=== PATIENT | male | born 1955 | race Caucasian/White ===

== ENCOUNTER 2023-03-07 11:32 | Inpatient (IN) | payer OTHER ==
[~2023-03-07] VITALS: Ht 182.9 cm; Wt 88.2 kg
[2023-03-07 12:15] LABS: BASOPHILS ABSOLUTE AUTO 0.08 K/mm3 (0.00-0.23); BASOPHILS PERCENT AUTO 1 % (0-2); EOSINOPHILS ABSOLUTE AUTO 0.51 K/mm3 (0.00-0.68); EOSINOPHILS PERCENT AUTO 6 % (0-6); Hematocrit 40.2 % (37.0-53.0); Hemoglobin 13.7 g/dL (13.5-17.5); IMMATURE GRAN ABSOLUTE AUTO 0.06 K/mm3 (0.00-0.10); IMMATURE GRAN PERCENT AUTO 1 % (0-1); LYMPHOCYTES ABSOLUTE AUTO 0.96 K/mm3 (0.84-5.20); LYMPHOCYTES PERCENT AUTO 11 % (21-46); MONOCYTES ABSOLUTE AUTO 0.66 K/mm3 (0.16-1.47); MONOCYTES PERCENT AUTO 8 % (4-13); Mean Corpuscular HGB Conc 34.1 g/dL (31.5-36.5); Mean Corpuscular Volume 94 fL (80-100); Mean Platelet Volume 8.6 fL (9.1-12.4); NEUTROPHILS ABSOLUTE AUTO 6.52 K/mm3 (1.96-9.15); NEUTROPHILS PERCENT AUTO 74 % (41-73); Platelet Count 403 K/mm3 (150-400); RDW Coefficient Variation 13.7 % (11.7-14.2); RDW Standard Deviation 47.6 fL (35.1-46.3); Red Blood Cell Count 4.28 M/mm3 (4.30-5.90); White Blood Cell Count 8.79 K/mm3 (4.00-11.30)
[2023-03-07] MEDS ORDERED: TIOT18 INH (12:24)
[2023-03-07] MEDS ORDERED: DABI150C (12:24)
[2023-03-07 12:25] LABS: Albumin, Blood 3.7 g/dL (3.4-5.0); Bilirubin, Total 0.7 mg/dL (0.1-1.0); Bun/Creatinine Ratio 21.6 (12.0-20.0); Creatinine, Blood 0.65 mg/dL (0.60-1.20); Globulin, Blood 3.6 g/dL (2.2-4.0); Potassium, Blood 3.8 mmol/L (3.5-5.5); Total Protein, Blood 7.3 g/dL (6.4-8.2)
[2023-03-07] MEDS ORDERED: GUAI600T33 PO (12:25)
[2023-03-07] MEDS ORDERED: ALBU90OI INH (12:25)
[2023-03-07] MEDS ORDERED: Ventolin/Prove6.7 GM INH (12:25)
[2023-03-07] MEDS ORDERED: FORMOTEROL20 MCG/2 M IH (12:26)
[2023-03-07 17:41] VITALS: BP 149/91
[2023-03-07 17:58] LABS: Adenovirus Not Detected (NOT DETECT); Bordetella pertussis Not Detected (NOT DETECT); Chlamydophila pneumoniae Not Detected (NOT DETECT); Coronavirus 229E Not Detected (NOT DETECT); Coronavirus HKU1 Not Detected (NOT DETECT); Coronavirus NL63 Not Detected (NOT DETECT); Coronavirus OC43 Not Detected (NOT DETECT); Human Metapneumovirus Not Detected (NOT DETECT); Human Rhinovirus/Enterovirus Not Detected (NOT DETECT); Influenza A/2009-H1 Not Detected (NOT DETECT); Influenza A/H1 Not Detected (NOT DETECT); Influenza A/H3 Not Detected (NOT DETECT); Influenza B Not Detected (NOT DETECT); Mycoplasma pneumoniae Not Detected (NOT DETECT); Parainfluenza Virus 1 Not Detected (NOT DETECT); Parainfluenza Virus 2 Not Detected (NOT DETECT); Parainfluenza Virus 3 Not Detected (NOT DETECT); Parainfluenza Virus 4 Not Detected (NOT DETECT); Respiratory Syncytial Virus Not Detected (NOT DETECT); SARS-Cov-2 (COVID-19), BioFire Not Detected (NOT DETECT)
[2023-03-07] MEDS ORDERED: Ventolin5 MG/1 ML INH (18:00)
[2023-03-07 20:14] VITALS: BP 138/78
--- NOTE | 2023-03-07 23:32 | NUR ---
START OF SHIFT THIS STUDENT NURSE ASSUMED CARE OF PT AT 1900 UNDER THE OBSERVATION OF NURSE JONES BLEVINS. ADMISSION IN PROGRESS. PT TOOK HOME MEDICATIONS PRIOR TO SHIFT CHAGNE. PT EDUCATED ON HOSPITAL PROTOCOL REGARDING MEDICATION ADMINISTRATION. PT A&O X4. PT HR AND BP ELEVATED, CURRENTLY RECEIVING BREATHING TREATMENTS/STERIODS. WILL MONITOR FOR S/S. REMAINING VITAL SIGNS WNL. EXP WHEEZING NOTED IN ALL LUNG FELIX, DIMINISHED SOUNDS IN LEFT LOWER LOBE. PRODUCTIVE COUGH PRESENT. ON TELE. NO COMPLAINTS OF PAIN. PT LET IN A POSITION OF COMFORT AND SAFETY WITH BED IN LOW POSITION, BREAKS ON, BED RAILS UP, NONSKID SOCKS ON, FLOOR CLEAR OF DEBRIS, AND CALL LIGHT WITHIN REACH. WILL CONTINUE TO MONITOR.
[2023-03-08 03:53] VITALS: BP 100/61
--- NOTE | 2023-03-08 04:30 | NUR ---
SHIFT SUMMARY THIS STUDENT NURSE ADDRESSED THE PT'S ACUTE RESP FAILURE BY ADMINISTERING PRESCRIBED SOLUMEDROL, PERFORMING DETAILED RESP ASSESSMENT, PT TEACHING REGARDING THE USE OF A FLUTTER VALVE. ENCOURAGED INCREASED NUTRITION WITH SNACKS TOLERATED. PROVIDED PT TEACHING ON PROTEIN SHAKES AT HOME TO IMPROVE NUTRITION INTAKE WHEN NOT HUNGRY DUE TO SOB. INTAKE ASSESSMENT PERFORMED BY JONES BLEVINS. VSS, HR TRENDING DOWN FROM PREVIOUS VALUES, SHOWING IMPROVEMENT. PT A&O X4. PT SLEPT PART OF SHIFT, PAIN MANAGED THROUGHOUT SHIFT. PT REMAINS IN A STATE OF COMFORT AND SAFETY. WILL CONTINUE TO MONITOR THROUGHOUT MY SHIFT.
--- NOTE | 2023-03-08 05:56 | NUR ---
CTA/SEPARATOR INSERTER I HAVE READ THIS SEPARATOR INSERTER'S DOCUMENTATION AND I AGREE. SHIFT SUMMARY LOCATED UNDER SEPARATOR INSERTER NOTE
[2023-03-08 07:14] VITALS: BP 136/97
--- NOTE | 2023-03-08 09:00 | NUR ---
PT PLEASANT TALKATIVE. A/O X4, FOCUSED ON BOATING ACCIDENT. HANDS SHAKEY, STATES LIKELY FROM STEROIDS. DENIES PAIN AT THIS TIME. CONCERNED ABOUT SPUTUM. STATES MOSTLY CLEAR AND THIN AT THIS TIME. ALSO MINIMAL. BUT COUGHS UP SOME. H/R REG, NO MURMUR NOTED, NO TELE NO EDEMA NOTED. LUNGS EXPIRATORY WHEEZES T/O. ON 2L O2. RESP EASY, UNLABORED. BT X4 LAST BM YEST PER PT. VOIDS INDEPENDANT TO BATHROOM. BED IN LOW POSITION, CALL LITE IN REACH, CALLS APPROP
[2023-03-08 15:02] VITALS: BP 139/82
[2023-03-08 19:16] VITALS: BP 130/84
--- NOTE | 2023-03-08 19:51 | NUR ---
PT QUITE PLEASANT TODAY. CONTINUES TO HAVE EXPIRATORY WHEEZE T//O. REMAINS ON 2L O2 TO KEEP O2 SATS STABLE. AMBULATES ROOM INDEPENDANTLY, TOOK SHOWER TODAY. INTERESTED IN FINDING DRS IN [place], CLOSER TO HOME IF CAN FOR FOLLOWUP. NO OTHER CONCERNS NOTED. BED IN LOW POSITION, CALL LITE IN REACH, CALLS APPROP
[2023-03-09 03:53] VITALS: BP 115/78
--- NOTE | 2023-03-09 04:15 | NUR ---
SHIFT SUMMARY ADMITTED FOR RESPIRATORY FAILURE. FULL CODE. ANTIB RX ARE SCHEDULED. AWAITING SPUTUM CX. WHEEZING THROUGHOUT LUNG FELIX. TREMORS NOTED. 2 LPM O2 VIA NC, RA @ BASELINE. A&O X4. ADMISSIONS AT [facility] SINCE DECEMBER, RECORDS IN HARDCOPY CHART. INDEPENDENT - BRP. ON HOME RX PRADAXA.
[2023-03-09 05:57] LABS: Hematocrit 34.3 % (37.0-53.0); Hemoglobin 11.4 g/dL (13.5-17.5); Mean Corpuscular HGB 31.6 pg (26.0-34.0); Mean Corpuscular HGB Conc 33.2 g/dL (31.5-36.5); Mean Corpuscular Volume 95 fL (80-100); Mean Platelet Volume 9.1 fL (9.1-12.4); Platelet Count 362 K/mm3 (150-400); RDW Coefficient Variation 14.2 % (11.7-14.2); RDW Standard Deviation 49.7 fL (35.1-46.3); Red Blood Cell Count 3.61 M/mm3 (4.30-5.90); White Blood Cell Count 16.32 K/mm3 (4.00-11.30)
[2023-03-09 06:19] LABS: Bun/Creatinine Ratio 39.1 (12.0-20.0); Calcium, Blood 8.6 mg/dL (8.5-10.1); Creatinine, Blood 0.79 mg/dL (0.60-1.20); Potassium, Blood 4.3 mmol/L (3.5-5.5)
[2023-03-09 07:12] VITALS: BP 140/98
[2023-03-09 15:02] VITALS: BP 125/79
--- NOTE | 2023-03-09 18:25 | NUR ---
PT PLEASANT TODAY. DID COLLECT SPUTUM SAMPLE TODAY. PENDING RESULTS. STATES LUNGS FEEL LIKE NOT IMPROVING MUCH. MAYBE NOT AT ALL TODAY. CONTINUES TO BE ON 2L O2. GETTING BREATHING TREATMENTS. O2 AFTER BREATHING TX LAST TIME AT 92%. PT CONTINUES TO BE WHEEZY T/O MOSTLY ON EXPIRATION. SLIGHTLY DIM BASES. NO NEW CHANGES NOTED. BED IN LOW POSITION, CALL LITE IN REACH, CALLS APPROP
[2023-03-09 19:41] VITALS: BP 133/85
--- NOTE | 2023-03-10 04:09 | NUR ---
PSYCHIATRY RESIDENT SUMMARY NO ACUTE EVENTS THIS SHIFT. A&OX4. PATIENT EFFECTIVELY COMMUNICATES NEEDS. VSS. RR EVEN AND SLIGHTLY LABORED WHILE AT REST ON 2L/MIN O2. EXERTIONAL DYSPENA NOTED. PATIENT DOES APPEAR TO TOLERATE AMBULATING TO THE RESTROOM. PATIENT DEMONSTRATES A HACKING COUGH WITH TENACIOUS PRODUCTION. SPUTUM CULTURE RESULTS PENDING. PATIENT WAS RESTLESS THROUGHOUT THE NIGHT BUT STATED THIS WAS SECONDARY TO SLEEPING DURING THE DAY. NO REPORTS OF PAIN THIS SHIFT. BED LOW AND LOCKED. CALL LIGHT WITHIN REACH. THIS RN WILL CONTINUE TO MONITOR.
[2023-03-10 04:21] VITALS: BP 123/95
[2023-03-10 07:57] VITALS: BP 131/94
--- NOTE | 2023-03-10 09:00 | NUR ---
PT PLEASNT COOP A/O X3 DENIES PAIN TODAY. STATES FEELING SOME BETTER TODAY, H/R REG, NO MURMUR NOTED NO TELE. NO EDEMA NOTED. LUNGS EXP WHEEZES T/O. ALSO LIGHT COARSE IN BASES. CONTINUES ON 2L O2. RESP EASY, UNLABORED. AGAIN , STATES SOME BETTER TODAY. BT X4 LAST BM YEST PER PT. VOIDS INDEPENDANT TO BATHROOM. NO NEW CONCERNS. BED IN LOW POSITION, CALL LITE IN REACH, CALLS APPROP
[2023-03-10 16:36] VITALS: BP 151/94
--- NOTE | 2023-03-10 18:22 | NUR ---
PT PLEASANT TODAY. STATES FEELS SOME BETTER TODAY. HOPING TO GET ON PATH TO GET FULLY BETTER AND GET HOME. LUNGS STILL EXP WHEEZES. CONTINUES TO BE ON 2L O2. NO NEW CONCERNS NOTED. BED IN LOW POSITIOIN, CALL LITE IN REACH, CALLS APPROP
[2023-03-10 19:51] VITALS: BP 132/96
--- NOTE | 2023-03-11 04:13 | NUR ---
PICKER TENDER HELPER SUMMARY NO ACUTE EVENTS THIS SHIFT. A&OX4. PATIENT EFFECTIVELY COMMUNICATES NEEDS. VSS. RR SLIGHTLY LABORED AT REST ON 2L/MIN O2. EXERTIONAL DYSPENEA NOTED. PATIENT DEMONSTRATES INTERMITTENT COUGH WITH TENACIOUS PRODUCTION. A SPUTUM SAMPLE IS NEEDED AT THIS TIME; PATIENT IS AWARE OF THIS AND A SPUTUM CUP IS AT BEDSIDE. NO PAIN REPORTED THIS SHIFT. BED LOW AND LOCKED. CALL LIGHT WITHIN REACH. THIS RN WILL CONTINUE TO MONITOR.
[2023-03-11 04:23] VITALS: BP 143/99
[2023-03-11 08:48] VITALS: BP 143/92
[2023-03-11 15:38] VITALS: BP 126/87
--- NOTE | 2023-03-11 17:51 | NUR ---
SUMMARY- NO ACUTE EVENTS THIS SHIFT. SPUTUM SAMPLE WAS COLLECTED. PT STILL ON 2L. INDEPENDENT IN ROOM. CALLS APPROPRIATELY.
[2023-03-11 20:00] VITALS: BP 129/92
--- NOTE | 2023-03-12 04:17 | NUR ---
SHIFT SUMMARY NO ACUTE CHANGES TO PT CONDITION. PT DID DECIDE TO TAKE OFF HIS O2 LAST NIGHT. PT STATED THAT HIS OXYGEN LEVEL WAS 92-93% AND THAT WAS BETTER THAN WHEN HE CAME IN. HE ALSO STS HE DOES NOT WANT TO BECOME DEPENDENT ON O2 WHEN HE GOES HOME. PT NOT COMPLAINING OF ANY BREATHING DIFFICULTIES AT THIS TIME.
[2023-03-12 07:47] VITALS: BP 136/95
[2023-03-12 15:46] VITALS: BP 133/83
--- NOTE | 2023-03-12 18:34 | NUR ---
SUMMARY- NO ACUTE EVENTS THIS SHIFT. PT WALKED THE HALLS MULTIPLE TIMES THIS SHIFT. W/O OXYGEN. O2 SATURATION STAYED ABOVE 91% AND HR STAYED BELOW 102.
[2023-03-12 19:29] VITALS: BP 133/76
[2023-03-13 05:24] VITALS: BP 143/97
--- NOTE | 2023-03-13 06:32 | NUR ---
SHIFT SUMMARY: A&O X 4, ABLE TO MAKE NEEDS KNOWN, USES CALL LIGHT. NO COMPLAINTS OF PAIN OR DISCOMFORT. HE DOES PLAN ON DISCHARGING TODAY AND VERBALIZES THAT HE NEEDS A PCP AND WOULD LIKE A CASE MANAGMENT MEETING TODAY. HE PLANS TO RETURN TO HIS PREVIOUS HOME BUT DOES NOT PLAN ON STAYING INSIDE THE CABIN WHICH IS WHERE HE RESIDED PREVIOUSLY. HE HAS HIS CALL LIGHT WITHIN REACH.
[2023-03-13 07:41] VITALS: BP 146/96
[2023-03-13] MEDS ORDERED: VISBIOME 112.51 EACH PO (12:05)
[2023-03-13] MEDS ORDERED: DULERA 200 MCG-13 GM INH (12:05)
[2023-03-13] MEDS ORDERED: PRED20 PO (12:05)
[2023-03-13] MEDS ORDERED: Q-Tussin100 MG/5 M PO (12:06)
[2023-03-13] MEDS ORDERED: LEVOFLOXACIN750 MG PO (12:07)
[2023-03-13] MEDS ORDERED: IPRAT-ALBUT 0.5-3 ML INH (12:07)
[2023-03-13] MEDS ORDERED: PANT20 PO (12:08)
--- NOTE | 2023-03-13 13:52 | NUR ---
LATE ENTRY PT DISCHARGED HOME. RIDE PROVIDED BY MS. DISCHARGE INSTRUCTIONS DISCUSSED WITH PT. NO QUESTIONS AT THIS TIME. R/A AND INDEPENDENT.
== END 2023-03-13 12:21 | disposition home or self-care (01) | DRG 193 ==
LOC: ER 11:32 → MEDS 15:11
PROVIDERS: Student in an Organized Health Care Education/Training Program; ADMIT Internal Medicine
DX: J18.9 Pneumonia, unspecified organism (principal); J96.01 Acute respiratory failure with hypoxia; J44.1 Chronic obstructive pulmonary disease with (acute) exacerbation; D68.59 Other primary thrombophilia; J44.0 Chronic obstructive pulmonary disease with (acute) lower respiratory infection; Z20.822 Contact with and (suspected) exposure to COVID-19; Z99.81 Dependence on supplemental oxygen; Z79.899 Other long term (current) drug therapy; Z87.891 Personal history of nicotine dependence
CPT/HCPCS: 0202U; 36415; 71045; 80048; 80053; 83735; 83880; 84145; 84484; 85025; 85027; 87070; 87205; 93005; 93010; 94640; 94644; 94664; 94760; 96365; 96375; 96376; 99285-25; A9270; J0456; J2930; J7030; J7050; J7512

== ENCOUNTER 2023-06-24 16:19 | Inpatient (IN) | payer OTHER ==
[~2023-06-24] VITALS: Ht 182.9 cm; Wt 90.0 kg
[~2023-06-24 16:19] MED LIST: ALBU90OI INH; DABI150C; DULERA 200 MCG-13 GM INH; FORMOTEROL20 MCG/2 M IH; GUAI600T33 PO; IPRAT-ALBUT 0.5-3 ML INH; LEVOFLOXACIN750 MG PO; PANT20 PO; PRED20 PO; Q-Tussin100 MG/5 M PO; TIOT18 INH; VISBIOME 112.51 EACH PO; Ventolin/Prove6.7 GM INH; Ventolin5 MG/1 ML INH
[2023-06-24 17:45] LABS: BASOPHILS PERCENT AUTO 1 % (0-2); EOSINOPHILS ABSOLUTE AUTO 0.19 K/mm3 (0.00-0.68); EOSINOPHILS PERCENT AUTO 2 % (0-6); Hematocrit 44.4 % (37.0-53.0); Hemoglobin 15.4 g/dL (13.5-17.5); IMMATURE GRAN ABSOLUTE AUTO 0.07 K/mm3 (0.00-0.10); IMMATURE GRAN PERCENT AUTO 1 % (0-1); LYMPHOCYTES ABSOLUTE AUTO 1.52 K/mm3 (0.84-5.20); LYMPHOCYTES PERCENT AUTO 16 % (21-46); MONOCYTES ABSOLUTE AUTO 0.75 K/mm3 (0.16-1.47); MONOCYTES PERCENT AUTO 8 % (4-13); Mean Corpuscular HGB 31.6 pg (26.0-34.0); Mean Corpuscular HGB Conc 34.7 g/dL (31.5-36.5); Mean Corpuscular Volume 91 fL (80-100); NEUTROPHILS PERCENT AUTO 73 % (41-73); RDW Coefficient Variation 12.9 % (11.7-14.2); RDW Standard Deviation 42.7 fL (35.1-46.3); Red Blood Cell Count 4.87 M/mm3 (4.30-5.90); White Blood Cell Count 9.53 K/mm3 (4.00-11.30)
[2023-06-24 18:41] LABS: Mean Platelet Volume 9.8 fL (9.1-12.4); Platelet Count 270 K/mm3 (150-400)
[2023-06-24 18:52] LABS: Base Excess Venous 1.2 mmol/L; PCO2 Venous 43.6 mmHg (38-42); pH Blood Venous 7.39 (7.34-7.37)
[2023-06-24 19:03] LABS: Albumin, Blood 4.2 g/dL (3.4-5.0); Albumin/Globulin Ratio 1.1 (0.8-1.8); Bun/Creatinine Ratio 16.8 (12.0-20.0); Calcium, Blood 9.8 mg/dL (8.5-10.1); Creatinine, Blood 0.77 mg/dL (0.60-1.20); Globulin, Blood 3.7 g/dL (2.2-4.0); Magnesium, Blood 2.4 mg/dL (1.6-2.4); Phosphorus, Blood 2.5 mg/dL (2.5-4.9); Total Protein, Blood 7.9 g/dL (6.4-8.2)
[2023-06-24 19:30] LABS: Influenza A, PCR NEGATIVE (NEGATIVE); Influenza B, PCR NEGATIVE (NEGATIVE); Resp Syncytial Virus, PCR NEGATIVE (NEGATIVE); SARS-Cov-2 (COVID-19) PCR, MMC NEGATIVE (NEGATIVE)
[2023-06-24 22:54] VITALS: BP 183/100
[2023-06-24] MEDS ORDERED: PANT20 PO (23:24)
[2023-06-25 04:54] VITALS: BP 187/103
--- NOTE | 2023-06-25 05:06 | NUR ---
PT ADMITTED LAST NIGHT FROM ED FOR COPD EXACERBATION. 2L NC IN ED BUT PATIENT WAS EXPERIENCING SOB ON 2L, INCREASED TO 4L NC TO MAINTAIN SATS AT 92+. LUNGS ARE COARSE AND WHEEZY. FREQUENT PRODUCTIVE COUGH WITH THICK WHITE OUTPUT. PT SHOWERED IMMEDIATELY ON ADMITTING. NO SKIN ISSUES. AOX4, SBA DUE TO MILD WEAKNESS IN GAIT, PATIENT DENIES RECENT HX OF FALLING. COOPERATIVE AND PLEASANT WITH CARES. FIRE SAFETY REVIEWED.
[2023-06-25 07:18] VITALS: BP 150/100
--- NOTE | 2023-06-25 14:03 | NUR ---
CALLED CALLED AT 14:02 TO REPORT PT'S ELEVATED BP. TO ROUND ON PT THIS SHIFT TO ADDRESS.
--- NOTE | 2023-06-25 17:34 | NUR ---
SHIFT SUMMARY PT A&OX4, COOPERATIVE, AMB INDEPENDENTLY, VOIDING, AND TOLERATING PO. BP REMAINED ELEVATED T/O SHIFT, REPORTED TO , ROUNDED AND PUT IN ORDER FOR COZAAR. PT MEDICATED PER EMAR. PT ASYMPTOMATIC AND DENIES PAIN. PT REPORTS ONGOING SOB, PRODUCTIVE COUGH, AND IS ON 4L O2. PT CALLS APPROPRIATELY AND CALL LIGHT IS WITHIN REACH. WILL CONTINUE TO MONITOR FOR CHANGES UNTIL END OF SHIFT AND REPORT TO THE ONCOMING RN.
--- NOTE | 2023-06-25 17:55 | NUR ---
PT STATED THAT HE BELIEVES THAT HE LOST CONCIOUSNESS AFTER A COPD COUGHING FIT, BUT IS UNSURE. PT IS CURRENTLY A&OX4. I INSTRUCTED THE PT TO REPORT SUBSEQUENT EPISODES WHEN THEY OCCUR. WILL TAKE PT'S VITAL SIGNS AND CONTINUE TO MONITOR FOR EPISODES AND CHANGES UNTIL END OF SHIFT AND REPORT TO THE ONCOMING RN.
[2023-06-25 18:06] VITALS: BP 134/86
--- NOTE | 2023-06-25 18:36 | NUR ---
THIS POSTAL WORKER HAS REVIEWED AND AGREES WITH ALL NOTES AND ASSESSMENTS BY ENID FOWLER.
[2023-06-25 21:32] VITALS: BP 134/85
--- NOTE | 2023-06-26 04:55 | NUR ---
SHIFT SUMMARY NOC PT A/O X 4. PLEASANT AND COOPERATIVE WITH CARE. PT HAD C/O OF PASSING OUT DURING DAY SHIFT. WHEN PASSING EVENING RX PT WAS FOUND TO HAVE HOME BLOOD THINNER IN BAG AND REPORTED TAKING THEM BID. PT IS ALSO TAKING XARELTO DAILY WHILE ON UNIT. PT WAS EDUCATED ON POSSIBLE NEGATIVE CONSEQUENCES OF TAKING TWO DIFFERENT BLOOD THINNERS AND AGREED TO NOT TAKE HOME RX WHILE STAYING IN HOSPITAL. PT ON O2 4L/NC MAINTAINING SPO2 >92%. PT IS ANXIOUS TO GO HOME SOON. PT IS CURRENTLY RESTING WITH BED IN LOWEST POSITION, AND CALL LIGHT WITHIN REACH.
[2023-06-26 05:19] LABS: Base Excess Venous 1.5 mmol/L; Bicarbonate Venous 25.4 mmol/L (24.0-30.0); PCO2 Venous 39.6 mmHg (38-42); pH Blood Venous 7.42 (7.34-7.37)
[2023-06-26 05:49] LABS: BASOPHILS ABSOLUTE AUTO 0.02 K/mm3 (0.00-0.23); BASOPHILS PERCENT AUTO 0 % (0-2); EOSINOPHILS PERCENT AUTO 0 % (0-6); Hematocrit 37.6 % (37.0-53.0); IMMATURE GRAN ABSOLUTE AUTO 0.15 K/mm3 (0.00-0.10); IMMATURE GRAN PERCENT AUTO 1 % (0-1); LYMPHOCYTES ABSOLUTE AUTO 0.63 K/mm3 (0.84-5.20); LYMPHOCYTES PERCENT AUTO 4 % (21-46); MONOCYTES PERCENT AUTO 4 % (4-13); Mean Corpuscular HGB 31.6 pg (26.0-34.0); Mean Corpuscular HGB Conc 34.6 g/dL (31.5-36.5); Mean Corpuscular Volume 92 fL (80-100); Mean Platelet Volume 9.3 fL (9.1-12.4); NEUTROPHILS ABSOLUTE AUTO 16.44 K/mm3 (1.96-9.15); NEUTROPHILS PERCENT AUTO 91 % (41-73); Platelet Count 269 K/mm3 (150-400); RDW Coefficient Variation 12.8 % (11.7-14.2); Red Blood Cell Count 4.11 M/mm3 (4.30-5.90); White Blood Cell Count 18.04 K/mm3 (4.00-11.30)
[2023-06-26 06:21] LABS: Bun/Creatinine Ratio 31.4 (12.0-20.0); Calcium, Blood 8.6 mg/dL (8.5-10.1); Creatinine, Blood 1.02 mg/dL (0.60-1.20); Potassium, Blood 3.8 mmol/L (3.5-5.5)
[2023-06-26 07:21] VITALS: BP 121/85
[2023-06-26 16:06] VITALS: BP 132/82
--- NOTE | 2023-06-26 18:18 | NUR ---
SHIFT SUMMARY PATIENT DENIES PAIN AND NAUSEA. SHORTNESS OF BREATH WITH ACTIVITY, 4L/NC TO MAINTAIN OXYGEN SATURATION ABOVE 90%. GOOD APPETITE. ALERT AND OREINTED, UP SBA NEEDED, USES URINAL INDEPENDENTLY. PATIENT ANXIOUS BUT PLEASANT AND COOPERATIVE WITH CARE.
[2023-06-26 20:36] VITALS: BP 141/87
[2023-06-27 06:12] VITALS: BP 115/67
--- NOTE | 2023-06-27 06:29 | NUR ---
SHIFT SUMMARY NOC PT A/I X 4. PLEASANT AND COOPERATIVE WITH CARE. PT STILL ON O2 4L/NC. NO ACUTE CHANGES TO REPORT. PT RECEIVING ZITHROMYCIN AND SOLU MEDROL STILL. PT REPORTS TREMORS ARE DECREASING WITH MYSOLINE RX. PT IS CURRENTLY RESTING WITH BED IN LOWEST POSITION, AND CALL LIGHT WITHIN REACH.
[2023-06-27 07:36] VITALS: BP 136/88
[2023-06-27 09:36] VITALS: BP 119/76
[2023-06-27 16:24] VITALS: BP 147/93
--- NOTE | 2023-06-27 18:18 | NUR ---
SHIFT SUMMARY- PT O2 WAS TITRATED DOWN TO 2L VIA NC TODAY SATS MAINTAINING AT 89-92%. PT STATES HE FEELS A LITTLE MORE TIRED THIS EVENING. PT ALERT AND ORIENTED INDEPENDENT IN THE ROOM. PT IN BED CURRENTLY CALL LIGHT IN REACH NO S&S OF DISTRESS. PT CALLS APPROPRIATELY.
[2023-06-27 19:43] VITALS: BP 141/81
[2023-06-28 05:31] LABS: BASOPHILS ABSOLUTE AUTO 0.01 K/mm3 (0.00-0.23); BASOPHILS PERCENT AUTO 0 % (0-2); EOSINOPHILS PERCENT AUTO 0 % (0-6); Hematocrit 38.7 % (37.0-53.0); Hemoglobin 13.4 g/dL (13.5-17.5); IMMATURE GRAN ABSOLUTE AUTO 0.22 K/mm3 (0.00-0.10); IMMATURE GRAN PERCENT AUTO 2 % (0-1); LYMPHOCYTES ABSOLUTE AUTO 0.72 K/mm3 (0.84-5.20); LYMPHOCYTES PERCENT AUTO 5 % (21-46); MONOCYTES ABSOLUTE AUTO 0.62 K/mm3 (0.16-1.47); MONOCYTES PERCENT AUTO 4 % (4-13); Mean Corpuscular HGB 31.5 pg (26.0-34.0); Mean Corpuscular HGB Conc 34.6 g/dL (31.5-36.5); Mean Corpuscular Volume 91 fL (80-100); Mean Platelet Volume 9.2 fL (9.1-12.4); NEUTROPHILS PERCENT AUTO 89 % (41-73); Platelet Count 290 K/mm3 (150-400); RDW Coefficient Variation 12.9 % (11.7-14.2); RDW Standard Deviation 42.5 fL (35.1-46.3); Red Blood Cell Count 4.25 M/mm3 (4.30-5.90); White Blood Cell Count 14.77 K/mm3 (4.00-11.30)
[2023-06-28 05:47] LABS: Bun/Creatinine Ratio 38.5 (12.0-20.0); Calcium, Blood 8.3 mg/dL (8.5-10.1); Creatinine, Blood 0.99 mg/dL (0.60-1.20); Potassium, Blood 4.1 mmol/L (3.5-5.5)
--- NOTE | 2023-06-28 07:32 | NUR ---
Shift Summary AOx4, independent in room. No c/o pain or nausea. Pt did have heavy respiratory secretions which were disposed of near the start of shift and states secretions amount has been trending down. Pt has mild tremor and is taking Q6 steriods and breathing treatments.
[2023-06-28 08:47] VITALS: BP 153/98
--- NOTE | 2023-06-28 15:51 | NUR ---
SHIFT SUMMARY TRANSITIONED TO ORAL STEROIDS THIS SHIFT, TOLERATING WELL. NO C/O PAIN THIS SHIFT, FAINT HAND TREMORS PRESENT. ON ROOM AIR THIS SHIFT. ABLE TO AMBULATE SHORT DISTANCES IN ROOM WITHOUT DIFFICULTY. WILL CONTINUE TO MONITOR
[2023-06-28 16:06] VITALS: BP 105/55
[2023-06-28 19:59] VITALS: BP 143/83
--- NOTE | 2023-06-29 04:15 | NUR ---
SHIFT SUMMARY GEETA WAS ALERT AND FULLY ORIENTED AT THE START OF THE SHIFT. HE HAS BEEN PLEASANT AND COOPERATIVE WITH CARE. PT CLAIMS THAT HE FEELS THAT HE IS STEADILY FEELING BETTER, AND THAT HIS COUGH HAS DRIED OUT. HE SAT AT HE EDGE OF HIS BED WATCHING VIDEOS THROUGHOUT THE NIGHT WITH NO COMPLAINTS, BUT DID NOT SLEEP. HE IS CURRENTLY ON THE EDGE OF BED WITH CALL LIGHT IN REACH.
[2023-06-29 04:43] VITALS: BP 145/102
[2023-06-29 05:10] LABS: BASOPHILS ABSOLUTE AUTO 0.02 K/mm3 (0.00-0.23); BASOPHILS PERCENT AUTO 0 % (0-2); EOSINOPHILS ABSOLUTE AUTO 0.01 K/mm3 (0.00-0.68); EOSINOPHILS PERCENT AUTO 0 % (0-6); Hematocrit 37.6 % (37.0-53.0); Hemoglobin 12.8 g/dL (13.5-17.5); IMMATURE GRAN ABSOLUTE AUTO 0.34 K/mm3 (0.00-0.10); IMMATURE GRAN PERCENT AUTO 2 % (0-1); LYMPHOCYTES ABSOLUTE AUTO 1.24 K/mm3 (0.84-5.20); LYMPHOCYTES PERCENT AUTO 8 % (21-46); MONOCYTES ABSOLUTE AUTO 1.35 K/mm3 (0.16-1.47); MONOCYTES PERCENT AUTO 8 % (4-13); Mean Corpuscular HGB 31.4 pg (26.0-34.0); Mean Corpuscular Volume 92 fL (80-100); Mean Platelet Volume 9.4 fL (9.1-12.4); NEUTROPHILS ABSOLUTE AUTO 13.17 K/mm3 (1.96-9.15); NEUTROPHILS PERCENT AUTO 82 % (41-73); Platelet Count 271 K/mm3 (150-400); RDW Coefficient Variation 12.8 % (11.7-14.2); RDW Standard Deviation 43.3 fL (35.1-46.3); Red Blood Cell Count 4.07 M/mm3 (4.30-5.90); White Blood Cell Count 16.13 K/mm3 (4.00-11.30)
[2023-06-29 05:30] LABS: Albumin, Blood 2.6 g/dL (3.4-5.0); Anion Gap 5 mmol/L (6-16); Blood Urea Nitrogen 43 mg/dL (8-24); Bun/Creatinine Ratio 45.4 (12.0-20.0); CO2, Blood 25 mmol/L (21-32); Chloride, Blood 106 mmol/L (98-108); Creatinine, Blood 0.95 mg/dL (0.60-1.20); Glomerular Filtration Rate 87 (60-); Glucose, Blood 153 mg/dL (70-99); Phosphorus, Blood 2.7 mg/dL (2.5-4.9); Sodium, Blood 136 mmol/L (136-145)
[2023-06-29 07:31] VITALS: BP 143/100
[2023-06-29 15:44] VITALS: BP 117/74
--- NOTE | 2023-06-29 16:03 | NUR ---
SHIFT SUMMARY PATIENT USING OXYGEN INTERMITTENTLY THIS SHIFT. DOC IS OKAY PLACING DISCHARGE OUT FOR TOMORROW DUE TO MED AVAILABILITY AND TRANSPORTATION CONCERNS PER PATIENT REPORT. DECLINING SHOWER THIS SHIFT, CONTINUES TO PUT IT OFF UNTIL LATER. WILL CONTINUE TO MOINITOR
[2023-06-29 19:52] VITALS: BP 132/81
--- NOTE | 2023-06-30 04:28 | NUR ---
SHIFT SUMMARY GEETA IS ALERT AND FULLY ORIENTED AND INDEPENDENT IN HIS ROOM. HE IS COOPERATIVE WITH CARE. PATIENT HAD NO ACUTE CHANGES THIS SHIFT. HE CONTINUES TO HAVE O2 AVAILABLE VIA N/C THAT HE CHOOSES NOT TO WEAR, BUT MAINTAINS 02 SATS IN THE LOW 90'S REGARDLESS. HE SLEPT MORE TONIGHT THAN THE PREVIOUS NIGHT. IT IS ANTICIPATED THAT HE WILL GO HOME ON DAY SHIFT TODAY. HE IS CURRENTLY IN BED RESTING AT A LOW POSITION WITH HIS CALL LIGHT IN REACH.
[2023-06-30 04:29] VITALS: BP 130/92
[2023-06-30 07:53] VITALS: BP 128/79
[2023-06-30] MEDS ORDERED: Acetaminophen650 M1 PO (12:23)
[2023-06-30] MEDS ORDERED: ACETADOTE200 MG/1 M INH (12:24)
[2023-06-30] MEDS ORDERED: BENZ100A PO (12:25)
[2023-06-30] MEDS ORDERED: LOSA50 PO (12:26)
[2023-06-30] MEDS ORDERED: PRED20 PO (12:37)
[2023-06-30] MEDS ORDERED: Primidone50 MG PO (12:39)
[2023-06-30] MEDS ORDERED: 1/2 NS 250ml250 ML (12:39)
--- NOTE | 2023-06-30 16:01 | NUR ---
DISCHARGE SUMMARY: DISCHARGE PAPERWORK DISCUSSED WITH PATIENT. HE VOICED UNDERSTANDING OF DISCHARGE AND ACKNOWLEDGED TO FOLLOW UP WITH HIS PRIMARY CARE IN 3 DAYS. MEDICATIONS FAXED TO [facility]. RIDE COORDINATED FOR PATIENT TO BRING HIM TO [facility] TO WATER/WASTEWATER ENGINEER MEDICATIONS AND TAKE HIM HOME. BELONGINGS WERE COLLECTED AND GIVEN TO PATIENT. PT TRANSFERRED VIA WHEELCHAIR BY [facility].
== END 2023-06-30 15:56 | disposition home or self-care (01) | DRG 189 ==
LOC: ER 16:19 → MEDS 16:20 → ENPENDDIS 06-30 10:56 → MEDS 06-30 15:56
PROVIDERS: Emergency Medicine; Internal Medicine; ADMIT Internal Medicine
DX: J96.01 Acute respiratory failure with hypoxia (principal); E43 Unspecified severe protein-calorie malnutrition; D68.59 Other primary thrombophilia; R64 Cachexia; J43.9 Emphysema, unspecified; G25.1 Drug-induced tremor; T48.6X5A Adverse effect of antiasthmatics, initial encounter; I48.0 Paroxysmal atrial fibrillation; R00.0 Tachycardia, unspecified; Z20.822 Contact with and (suspected) exposure to COVID-19; R73.9 Hyperglycemia, unspecified; D72.829 Elevated white blood cell count, unspecified; F17.210 Nicotine dependence, cigarettes, uncomplicated; Z79.01 Long term (current) use of anticoagulants; Z86.718 Personal history of other venous thrombosis and embolism; Z79.899 Other long term (current) drug therapy; Z79.51 Long term (current) use of inhaled steroids; Z68.27 Body mass index [BMI] 27.0-27.9, adult
CPT/HCPCS: 0241U; 36415; 71046; 80048; 80053; 80069; 82803; 83605; 83735; 83880; 84100; 84145; 84484; 85025; 85379; 93005; 93010; 93306; 94640; 94664; 94760; 94761; 96365; 96375; 96376; 99285-25; A9270; G0378; J0456; J1940; J2930; J7030; J7050; J7512

== ENCOUNTER → 2023-08-21 | Outpatient (CLI) | payer OTHER ==
[~2023-08-21] MED LIST changes: +1/2 NS 250ml250 ML; +ACETADOTE200 MG/1 M INH; +Acetaminophen650 M1 PO; +BENZ100A PO; +LOSA50 PO; +Primidone50 MG PO
== END | disposition home or self-care (01) ==
LOC: LAB 16:13 → LAB SHORT 16:13
DX: J44.9 Chronic obstructive pulmonary disease, unspecified (principal)
CPT/HCPCS: 87070; 87205

== ENCOUNTER 2024-02-05 10:55 | Inpatient (IN) | payer OTHER ==
[2024-02-05] VITALS (12 sets, daily range): BP systolic 137–176; BP diastolic 88–115
[~2024-02-05] VITALS: Ht 182.9 cm; Wt 95.9 kg
[2024-02-05] MEDS ORDERED: Albuterol 2.5 MG/3 ML VIAL INH SCH (11:10)
[2024-02-05] MEDS ORDERED: Ipratropium/Albuterol SulF 2.5-0.5MG/3 ML Amp INH ONE (11:10)
[2024-02-05 11:19] LABS: BASOPHILS ABSOLUTE AUTO 0.08 K/mm3 (0.00-0.23); BASOPHILS PERCENT AUTO 1 % (0-2); EOSINOPHILS PERCENT AUTO 2 % (0-6); Hematocrit 42.8 % (37.0-53.0); Hemoglobin 14.5 g/dL (13.5-17.5); IMMATURE GRAN ABSOLUTE AUTO 0.07 K/mm3 (0.00-0.10); IMMATURE GRAN PERCENT AUTO 1 % (0-1); LYMPHOCYTES ABSOLUTE AUTO 1.92 K/mm3 (0.84-5.20); LYMPHOCYTES PERCENT AUTO 15 % (21-46); MONOCYTES PERCENT AUTO 11 % (4-13); Mean Corpuscular HGB 31.7 pg (26.0-34.0); Mean Corpuscular HGB Conc 33.9 g/dL (31.5-36.5); Mean Corpuscular Volume 94 fL (80-100); Mean Platelet Volume 9.1 fL (9.1-12.4); NEUTROPHILS ABSOLUTE AUTO 8.99 K/mm3 (1.96-9.15); NEUTROPHILS PERCENT AUTO 71 % (41-73); Platelet Count 305 K/mm3 (150-400); RDW Coefficient Variation 13.8 % (11.7-14.2); RDW Standard Deviation 47.2 fL (35.1-46.3); Red Blood Cell Count 4.57 M/mm3 (4.30-5.90); White Blood Cell Count 12.76 K/mm3 (4.00-11.30)
[2024-02-05] MEDS ORDERED: NiCARdipine HCL 1,000 MCG/5 ML SYR ONE (11:20)
[2024-02-05] MEDS ORDERED: Heparin Sodium 1000 Units/ML 10ML MDV ONE (11:20)
[2024-02-05] MEDS ORDERED: NS 1,000 ML IV ONE ×3 (11:20→12:31)
[2024-02-05] MEDS ORDERED: Nitroglycerin 2 MG/20 ML BTL ONE (11:21)
[2024-02-05] MEDS ORDERED: NS 250 ML IV ONE (11:24)
[2024-02-05] MEDS ORDERED: FentaNYL Citrate 50 MCG/ML 2 ML Injection ONE (11:27)
[2024-02-05] MEDS ORDERED: Midazolam HCl 1MG / ML 2ML Vial ONE (11:28)
[2024-02-05 11:39] LABS: Alanine Aminotransfer (ALT/SGP 18 U/L (12-78); Albumin, Blood 3.5 g/dL (3.4-5.0); Albumin/Globulin Ratio 0.9 (0.8-1.8); Alk Phos 67 U/L (50-136); Anion Gap 11 mmol/L (3-11); Aspartate Aminotrans (AST/SGOT 14 U/L (12-37); Bilirubin, Total 1.9 mg/dL (0.1-1.0); Blood Urea Nitrogen 17 mg/dL (8-24); Bun/Creatinine Ratio 19.8 (12.0-20.0); CO2, Blood 24 mmol/L (21-32); Calcium, Blood 9.3 mg/dL (8.5-10.1); Chloride, Blood 106 mmol/L (98-108); Creatinine, Blood 0.86 mg/dL (0.60-1.20); Globulin, Blood 4.1 g/dL (2.2-4.0); Glomerular Filtration Rate 94 (60-); Glucose, Blood 120 mg/dL (70-99); Magnesium, Blood 2.1 mg/dL (1.6-2.4); Potassium, Blood 3.8 mmol/L (3.5-5.5); Sodium, Blood 137 mmol/L (136-145); Total Protein, Blood 7.6 g/dL (6.4-8.2)
[2024-02-05] MEDS ORDERED: Acetaminophen 325 MG TABLET PO PRN (11:50)
[2024-02-05] MEDS ORDERED: Polyethylene Glycol 3350 17 gm PO PRN (11:55)
[2024-02-05] MEDS ORDERED: Bisacodyl 10 MG Supp PR PRN (11:55)
[2024-02-05] MEDS ORDERED: Verapamil HCL 2.5 MG/ML 2ML Injection ONE (12:13)
[2024-02-05 12:15] LABS: Influenza A, PCR NEGATIVE (NEGATIVE); Influenza B, PCR NEGATIVE (NEGATIVE); Resp Syncytial Virus, PCR NEGATIVE (NEGATIVE); SARS-Cov-2 (COVID-19) PCR, MMC NEGATIVE (NEGATIVE)
[2024-02-05] MEDS ORDERED: Mometasone/Formoterol MDI 200/5 mcg 13 GM INH SCH (12:25)
[2024-02-05] MEDS ORDERED: Ipratropium Bromide INH 0.02% 0.5 mg/2.5ML Vial INH SCH (12:25)
[2024-02-05 12:34] LABS: CHOL/HDL RATIO 3.3; Cholesterol 173 mg/dL (50-200); HDL Cholesterol 53 mg/dL (>39); LDL/HDL RATIO 2.1; Low Density Lipoprotein Chol 109 mg/dL (0-110); Triglycerides 53 mg/dL (30-160); Very Low Density Lipoprot Chol 10 mg/dL (6-32)
[2024-02-05] MEDS ORDERED: NS 1,000 ML IV SCH (13:00)
[2024-02-05] MEDS ORDERED: Albuterol 2.5 MG/3 ML VIAL INH PRN (13:25)
[2024-02-05] MEDS ORDERED: Ipratropium/Albuterol SulF 2.5-0.5MG/3 ML Amp INH SCH (13:30)
[2024-02-05] MEDS ORDERED: Ondansetron HCl 2 MG / ML 2ML Vial IV PRN (16:00)
--- NOTE | 2024-02-05 18:49 | NUR ---
DAY SHIFT SUMMARY PT ARRIVED FROM WEBLOGIC DEVELOPER TO ICU 2. PT HAS REMAINED ALERT AND ORIENTED COMMUNICATING APPROPRIATELY W STAFF. PT REPORTING DYSPNEA W SOME RESOLVE AFTER BREATHING TX'S. PT REPORTING CHEST TIGHTNESS THAT IS UNCHANGED FROM ADMISSION. PT REPORTS RELIEF OF CHEST PRESSURE WHEN HE IS SITTING UP LEANED FORWARD. PT MAINTAINING SPO2 >92% ON RM AIR. BP WNL AND STABLE. MONITOR SHOWING SR 80'S W DIFFUSE ST ELEVATIONS. PT'S TR BAND OFF AND SHOWS NO S/S OF BLEEDING OR HEMATOMA. PT TOLERATING PO INTAKE. PT W 1 BM THIS SHIFT. WILL REPORT TO ONCOMING RN.
[2024-02-05] MEDS ORDERED: Primidone 50 MG Tab PO SCH (21:00)
[2024-02-05] MEDS ORDERED: Docusate Sodium 100 MG Cap PO SCH (21:00)
[2024-02-05] MEDS ORDERED: Losartan Potassium 50 MG Tab PO SCH (21:05)
--- NOTE | 2024-02-05 22:38 | NUR ---
ASSUMPTION OF CARE ASSUMED CARE OF PATIENT AT 1900. RECIEVED REPORT FROM COLIN. PATIENT CURRENTLY SITTING UP AT EDGE OF BED. A&Ox4. SP02 94% ON ROOM AIR. LUNG SOUNDS CLEAR AND DIMINISHED. PT DENIES CHEST PAIN OR PRESSURE. SBP 140s-150s. RIGHT RADIAL ACCESS SITE FOR PCI. TR BAND REMOVED AROUND [address]. NO BLEEDING OR HEMATOMA. 18G IVs TO BILATERAL ACs, SALINE LOCKED. +1 EDEMA AND PURPLE DISCOLOARTION NOTED IN BLEs. BED LOWERED AND CALL LIGHT IN REACH. SEE SHIFT ASSESSMENT FOR FULL ASSESSMENT.
--- NOTE | 2024-02-05 22:48 | NUR ---
UPDATE PT ASKED ABOUT TAKING HIS PM DOSE OF [place]. HE NORMALLY TAKES 50MG BID AT HOME. CALL MADE TO HOSPITALIST WHO AGREED TO START HIM ON HIS NORMAL AT HOME DOSE.
[2024-02-05] MEDS ORDERED: Ticagrelor 90 MG TABLET PO ONE (23:06)
[2024-02-05] MEDS ORDERED: Nitroglycerin 0.4 MG SUBL SL ONE (23:06)
[2024-02-05] MEDS ORDERED: Heparin Sodium,Porcine 5,000 UNIT/0.5 ML SDV SC ONE (23:06)
[2024-02-06 03:25] VITALS: BP 162/105
[2024-02-06 03:39] LABS: BASOPHILS ABSOLUTE AUTO 0.06 K/mm3 (0.00-0.23); BASOPHILS PERCENT AUTO 1 % (0-2); EOSINOPHILS ABSOLUTE AUTO 0.46 K/mm3 (0.00-0.68); EOSINOPHILS PERCENT AUTO 6 % (0-6); Hematocrit 41.4 % (37.0-53.0); Hemoglobin 14.1 g/dL (13.5-17.5); IMMATURE GRAN ABSOLUTE AUTO 0.05 K/mm3 (0.00-0.10); IMMATURE GRAN PERCENT AUTO 1 % (0-1); LYMPHOCYTES ABSOLUTE AUTO 1.46 K/mm3 (0.84-5.20); LYMPHOCYTES PERCENT AUTO 18 % (21-46); MONOCYTES PERCENT AUTO 12 % (4-13); Mean Corpuscular HGB 31.7 pg (26.0-34.0); Mean Corpuscular HGB Conc 34.1 g/dL (31.5-36.5); Mean Corpuscular Volume 93 fL (80-100); NEUTROPHILS ABSOLUTE AUTO 5.18 K/mm3 (1.96-9.15); NEUTROPHILS PERCENT AUTO 63 % (41-73); Platelet Count 272 K/mm3 (150-400); RDW Coefficient Variation 13.5 % (11.7-14.2); RDW Standard Deviation 45.9 fL (35.1-46.3); Red Blood Cell Count 4.45 M/mm3 (4.30-5.90); White Blood Cell Count 8.21 K/mm3 (4.00-11.30)
[2024-02-06 04:14] LABS: Bun/Creatinine Ratio 18.6 (12.0-20.0); Creatinine, Blood 0.81 mg/dL (0.60-1.20); Potassium, Blood 3.9 mmol/L (3.5-5.5)
[2024-02-06] MEDS ORDERED: Pantoprazole Sodium 40 MG Tab PO SCH (06:00)
--- NOTE | 2024-02-06 06:00 | NUR ---
SHIFT SUMMARY NO ACUTE CHANGES OVERNIGHT. A&Ox4. ON ROOM AIR SPO2 >90. PT REPORTED CHEST TIGHTNESS AND DYSPNEA WHEN LAYING DOWM BUT DENIES ANY CHEST PAIN OR PRESSURE. DISCOMFORT RELIEVED BY SITTING UP AT EDGE OF BED. PATIENT AGREED TO NEB TREATMENT, GAVE SOME RELIEF. PATIENT REPOSITIONS INDEPENDENTLY. USES URINAL WHEN NEEDED WITH MODERATE URINE OUTPUT. 18G IV ION BILAT AC SLAINE LOCKED. RIGHT RADIAL ACCESS SITE COVERED WITH TEGADERM, WITHOUT BLEEDING OR HEMATOMA. PATIENT REPORTS SOME TENDERNESS BUT NOT PAINFUL. PULSE PRESNT IN ALL EXTREMITIES. WILL REPORT TO AM RN WHEN AVILABLE.
--- NOTE | 2024-02-06 06:04 | NUR ---
NURSING STUBED ASSESSMENTS, PATIENT CARE, AND DOCUMENTATION OBSERVED AND OVERVIEWED BY THIS RN.
[2024-02-06 07:39] VITALS: BP 166/108
[2024-02-06] MEDS ORDERED: Losartan Potassium 50 MG Tab PO SCH (09:00)
[2024-02-06] MEDS ORDERED: Nicotine 14 MG PATCH TOP SCH (09:00)
[2024-02-06] MEDS ORDERED: Losartan Potassium 25 MG Tab PO SCH (09:00)
[2024-02-06 10:51] VITALS: BP 140/104
[2024-02-06] MEDS ORDERED: Acetaminophen650 M1 PO (11:50)
[2024-02-06] MEDS ORDERED: ALBU2.5V5 INH (11:52)
[2024-02-06] MEDS ORDERED: IPRAT-ALBUT 0.5-3 ML INH (11:52)
--- NOTE | 2024-02-06 12:48 | NUR ---
Discharge note. Pt was very ready for discharge today. Pt refused to walk the unit with staff or have a bath. No complaints of CP or SOB this shift. All vitals stable. All questions were answered. All belongings taken with the Pt. Cab ride arranged. Pt was escorted to the door.
[2024-02-06] MEDS ORDERED: Rivaroxaban 10 MG Tab PO SCH (17:00)
== END 2024-02-06 12:45 | disposition home or self-care (01) | DRG 281 ==
LOC: ER 10:55 → ICUE 11:49
PROVIDERS: Student in an Organized Health Care Education/Training Program; ADMIT Family Medicine
PROC: B2111ZZ Fluoroscopy of Multiple Coronary Arteries using Low Osmolar Contrast (ICD-10-PCS; principal; 2024-02-05)
PROC: 4A023N7 Measurement of Cardiac Sampling and Pressure, Left Heart, Percutaneous Approach (ICD-10-PCS; 2024-02-05)
DX: I21.09 ST elevation (STEMI) myocardial infarction involving other coronary artery of anterior wall (principal); I31.9 Disease of pericardium, unspecified; I25.10 Atherosclerotic heart disease of native coronary artery without angina pectoris; J44.9 Chronic obstructive pulmonary disease, unspecified; G89.29 Other chronic pain; M54.9 Dorsalgia, unspecified; I48.0 Paroxysmal atrial fibrillation; I10 Essential (primary) hypertension; K59.00 Constipation, unspecified; M47.817 Spondylosis without myelopathy or radiculopathy, lumbosacral region; Z86.718 Personal history of other venous thrombosis and embolism; Z79.01 Long term (current) use of anticoagulants; Z87.891 Personal history of nicotine dependence; Z79.52 Long term (current) use of systemic steroids
CPT/HCPCS: 0241U; 36415; 71045; 76937; 80048; 80053; 80061; 83690; 83735; 83880; 84145; 84484; 85025; 93005; 93010; 93306; 93458; 94640; 94664; 94762; 99152; 99153; 99285-25; A9270; C1769; C1894; J1644; J2250; J3010; J7030; J7050; Q9967